=== PATIENT | male | born 1955 | race Caucasian/White ===

== ENCOUNTER 2022-06-22 16:13 | Emergency (ER) | payer MEDICARE, SELFPAY ==
--- NOTE | 2022-06-22 16:59 | DI.RAD.S_ITS ---
PROCEDURE: XR FOOT LT MIN 3V INDICATIONS: crush injury TECHNIQUE: 3 views of the foot were acquired. COMPARISON: None. FINDINGS: Bones: Crush injury of the tuft of the 2nd and 3rd toes. No radiopaque foreign bodies. Soft tissues: No tibiotalar joint effusion. Achilles tendon appears normal. IMPRESSION: Crush injury/fractures of the tuft of the 2nd and 3rd toes. Dictated by: Gavin Mcdonald M.D. on 06/22/2022 at 17:42 Approved by: Gavin Mcdonald M.D. on 06/22/2022 at 17:44
[2022-06-22] MEDS: LIDOCAINE 2% INJ SDV 5 ML INJ (21:09)
[2022-06-22 21:32] VITALS: BP 124/78; PULSE 77; TEMP 36.6; O2SAT 97
[2022-06-22 22:33] VITALS: BP 124/73; PULSE 81; RESP 16; O2SAT 100
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
[2022-06-23] MEDS: HYDROCODONE/ACET 5/325 PREPACK 1 BOTTLE MISC (00:45)
[2022-06-23] MEDS: cephALEXin 250 MG PREPACK 1 BOTTLE MISC (00:45)
[2022-06-23 00:59] VITALS: BP 131/75; PULSE 81; RESP 18; O2SAT 98
== END 2022-06-23 01:03 | disposition home or self-care (01) ==
PROVIDERS: Emergency Provider Emergency Medicine; Family Provider Family Medicine; PCP Family Medicine
DX: S92.592A Other fracture of left lesser toe(s), initial encounter for closed fracture (principal); S91.312A Laceration without foreign body, left foot, initial encounter; W55.29XA Other contact with cow, initial encounter
CPT/HCPCS: 12002; 73630; 99282; 99283

== ENCOUNTER 2022-12-31 16:18 | Emergency (ER) | payer MEDICARE, SELFPAY ==
[2022-12-31] VITALS (21 sets, daily range): BP systolic 126–156; BP diastolic 73–90; PULSE 74–92; RESP 14–25; TEMP 36.7–37; O2SAT 93–99; BMI 23.0
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
[2022-12-31 16:46] LABS: Add Manual Diff / Slide Review NO; Basophils Absolute Auto 0 /uL (0-100); Basophils Percent Auto 0.5 % (0-2); Eosinophils Absolute Auto 100 /uL (0-450); Eosinophils Percent Auto 1.7 % (2-4); Hematocrit 37.7 % (41-53); Lymphocytes Absolute Auto 2900 /uL (1100-4500); Lymphocytes Percent Auto 34.2 % (25-40); Mean Corpuscular HGB Conc 34.5 % (30-36); Mean Corpuscular Hemoglobin 32.6 PG (26-34); Mean Corpuscular Volume 94.6 fL (80-100); Monocytes Absolute Auto 500 /uL (0-900); Monocytes Percent Auto 5.7 % (3-14); Neutrophils Absolute Auto 5000 /uL (1500-7000); Neutrophils Percent Auto 57.9 % (50-75); Platelet Count 276 X10^3/uL (150-400); Red Blood Cell Count 3.99 X10^6/uL (4.5-5.9); Red Cell Distribution Width 13.5 % (11.6-14.8); White Blood Cell Count 8.5 X10^3/uL (4.5-11.0)
[2022-12-31 16:48] LABS: INR 1.2 (0.9-1.3); Prothrombin Time 13.6 SECONDS (10.1-12.7)
[2022-12-31 16:50] LABS: PTT Partial Thromboplastin Tim 28 SECONDS (26-36)
[2022-12-31 16:51] LABS: Alanine Aminotransferase 21 IU/L (<50); Albumin 4.2 g/dL (3.5-5.0); Albumin Globulin Ratio 1.4 (1.0-2.8); Alkaline Phosphatase 93 U/L (38-126); Aspartate Aminotransferase 26 IU/L (17-59); Bilirubin Total 0.4 mg/dL (0.2-1.3); Blood Urea Nitrogen 12 mg/dL (9-20); Calcium 8.1 mg/dL (8.4-10.2); Carbon Dioxide 22 mmol/L (22-32); Chloride 103 mmol/L (98-107); Estimated Glomerular Filt Rate > 60 mL/min (>60); Ethanol (ETOH) < 10 mg/dL; Globulin 2.9 g/dL (1.7-4.1); Glucose 111 mg/dL (80-110); HEMOLYSIS < 15 (0-50); Lipase 63 U/L (23-300); Potassium 3.7 mmol/L (3.4-5.1); Sodium 134 mmol/L (137-145); Total Protein 7.1 g/dL (6.3-8.2)
[2022-12-31 16:52] LABS: Lactate (Lactic Acid) 1.1 mmol/L (0.7-2.1)
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
[2022-12-31] MEDS: OXYCODONE IR 5 MG TABLET 10 MG PO (17:43)
[2022-12-31] MEDS: MORPHINE 4 MG/ML INJ IV (18:54)
[2022-12-31] MEDS: LACTATED RINGERS 1,000 ML 125 ML IV (18:54)
[2022-12-31] MEDS: CEFAZOLIN 2 GM/100 ML PREMIX 100 ML IV (18:57)
--- NOTE | 2022-12-31 19:20 | PC.NURSE ---
See paper chart for Trauma Activation Flowsheet.
--- NOTE | 2022-12-31 19:24 | PC.NURSE ---
CLINICAL ALLERGIST noted blood dripping from air splint. Provider made aware. Airsplint was removed and small puncture wound to back of calf noted. Pressure dressing applied per direction of provider Cindi. Pt also unable to feel any touch to mid right calf and no sensation to his right third, right fourth and right fifth toe. Provider made aware. Cap refill less than 2 seconds in all right sided toes.
[2022-12-31 20:02] LABS: COVID19 -Nasal RAPID Negative (Negative)
[2022-12-31] MEDS: HYDROMORPHONE 0.5 MG INJ IV (20:22)
== END 2022-12-31 20:33 | disposition short-term general hospital (02) ==
PROVIDERS: Emergency Provider Emergency Medicine; Family Provider Family Medicine; PCP Family Medicine
DX: S52.501A Unspecified fracture of the lower end of right radius, initial encounter for closed fracture (principal); S82.201A Unspecified fracture of shaft of right tibia, initial encounter for closed fracture; S82.401A Unspecified fracture of shaft of right fibula, initial encounter for closed fracture; S92.321A Displaced fracture of second metatarsal bone, right foot, initial encounter for closed fracture; S92.331A Displaced fracture of third metatarsal bone, right foot, initial encounter for closed fracture; S92.341A Displaced fracture of fourth metatarsal bone, right foot, initial encounter for closed fracture; S92.311A Displaced fracture of first metatarsal bone, right foot, initial encounter for closed fracture; V23.49XA Other motorcycle driver injured in collision with car, pick-up truck or van in traffic accident, initial encounter; Z20.822 Contact with and (suspected) exposure to COVID-19
CPT/HCPCS: 29125; 29515; 36415; 70450; 71045; 72125; 72170; 73100; 73590; 73600; 73620; 80053; 80320; 83605; 83690; 85025; 85610; 85730; 86850; 86900; 86901; 87635; 93005; 96365; 96375; 99285; C9803; J0690; J1170; J2270